=== PATIENT | female | born 1995 | race Caucasian/White ===

== ENCOUNTER 2024-10-08 12:25 | Emergency (ER) | payer BC, SELFPAY ==
[2024-10-08 12:27] VITALS: BP 124/92; PULSE 90; RESP 15; TEMP 36.1; O2SAT 100; BMI 40.2
[2024-10-08 13:02] LABS: Bacteria 0 SEEN /hpf (None Seen); Mucous, Urine 0 SEEN /hpf (<or=2+)
[2024-10-08 13:07] LABS: Absolute Lymphocyte Count 3.02 X10^3/uL (0.83-4.51); Absolute Neutrophil Count 10.5 X10^3/uL (2.0-7.7); Basophil# 0.07 X10^3/uL; Basophil% 0.5 % (0-1); Eosinophil# 0.17 X10^3/uL; Eosinophils% 1.2 % (0-5); Hematocrit 45.5 % (37-47); Hemoglobin 15.2 g/dL (12.0-15.0); Lymphocyte # 3.02 X10^3/ul (0.83-4.51); Lymphocyte % 20.9 % (19-41); Mean Corp Hgb Conc 33.4 g/dL (32-36); Mean Corpuscular Hgb 28.2 pg (27.0-32.0); Mean Corpuscular Volume 84.4 fL (81-99); Monocyte# 0.64 X10^3/uL; Monocyte% 4.4 % (0-10); NRBC Flagged by Analyzer 0 % (0-5); Neutrophil # 10.47 X10^3/uL (2.7-7.7); Neutrophil % 72.5 % (47-70); Platelet Count 330 K/mm3 (150-450); RBC Distribution Width CV 15.6 % (11.6-14.6); RBC Distribution Width SD 47.4 fl (35.1-43.9); Red Blood Count 5.39 M/mm3 (4.2-5.4); White Blood Count 14.4 K/mm3 (4.4-11.0)
[2024-10-08 13:19] LABS: Color, Urine Yellow (Yellow); Glucose, Dipstick Normal (Normal); Ketone-Dipstick Negative (Negative); Leukocyte Esterase-Dipstick 25 /ul (Negative); Nitrite-Dipstick Negative (Negative); Occult Blood-Urine Negative /ul (Negative); Protein-Dipstick 30 mg/dl (Negative); Urine Bilirubin Dipstick Negative (Negative); Urine Clarity Sl. Cloudy (Clear); Urine Urobilinogen Normal (Normal)
--- NOTE | 2024-10-08 13:23 | EX.ED.DYSGE1 ---
HPI History of Present Illness Chief Complaint: Abd Pain Narrative Narrative: Chief complaint and HPI: Nausea and vomiting. 29-year-old female presents for evaluation of nausea and vomiting. Patient states this morning she woke with diffuse abdominal pain that led to 2 episodes of nausea and vomiting. Nonbilious, nonbloody. She states her abdominal pain has now resolved. She denies any diarrhea. Denies any fever, chills, shortness of breath, chest pain, dysuria. Patient states that she is 11 days late on her menstrual cycle. Her last intercourse was 1 month ago. Review of systems: See HPI Medications: As listed on the chart Allergies: As listed on the chart PFSH: Per chart Vital signs: As listed on the chart. Reviewed. Physical exam: Gen: A&O x3, NAD Head: Normocephalic, atraumatic Eyes: No sclera icterus, conjunctiva clear ENT: Moist mucous membranes Neck: Trachea midline, No JVD CV: RRR, no murmurs, no peripheral edema Resp: Lungs CTA BL, no w/r/c GI: Abd soft, non-distended, non-tender, no r/r/g : No CVA tenderness Musc: Full ROM, no deformity Skin: Warm, dry Neuro: Alert, oriented, grossly intact, sensation intact Psych: Cooperative, appropriate mood and [facility] Medications ?Medication ?Instructions ?Recorded ?Last Taken ?Type ondansetron 4 mg disintegrating 4 mg PO Q8H PRN PRN Nausea #10 tabs 10/08/24 Unknown Rx tablet Allergy/AdvReac Type Severity Reaction Status Date / Time No Known Allergies Allergy Verified 10/08/24 12:30 Surgical History (Updated 10/08/24 @ 12:53 by Sonya Lawson) Hx of thyroidectomy Social History Smoking Status: Never smoker EXAM Physical Exam Const Vital Signs: 10/08/24 12:27 10/08/24 14:26 10/08/24 15:02 Temperature 96.9 F L 98.7 F Temperature Source Temporal Pulse Rate 90 82 84 Respiratory Rate 15 16 16 Blood Pressure 124/92 H 132/74 H 128/74 H Blood Pressure Mean 102 93 92 Pulse Ox 100 97 97 Oxygen Delivery Method Room Air MDM MDM MDM Narrative Medical decision making narrative: 29-year-old female presents for evaluation of nausea and vomiting. Patient had 2 episodes that were nonbloody and nonbilious. Had abdominal pain that is since resolved. Denying nausea currently. Patient is late on her menstrual cycle. Differential diagnosis includes but is not limited to viral gastroenteritis, , UTI, electrolyte abnormality, pancreatitis, cholecystitis, gastritis. Patient offered antinausea medication but declined stating that she is no longer nauseous. She is actively drinking Gatorade in the room. Abdominal laboratory workup ordered. I do not think any imaging is needed at this time given that abdominal physical exam is benign and patient is no longer endorsing nausea or abdominal pain. CBC with mild leukocytosis of 14.4. Patient has mild hemoconcentration of 15.2. CMP consistent with metabolic anion gap. Patient does have hyperglycemia of 122 however she has no ketones or glucose in her urine. Not consistent with diabetes however consistent with dehydration given patient's nausea and vomiting. She has no CH[place]. Patient has mild transaminitis with an AST of 49 and ALT of 51. Patient is not endorsing any right upper quadrant abdominal pain and she is not tender on physical exam. You can see this elevation with viral illnesses as well as dehydration. Lipase unremarkable. Serum negative. UA negative for UTI. On reevaluation, patient denies any abdominal pain. She has been tolerating Gatorade the entire time in the emergency department without nausea, vomiting. Suspect viral illness. Patient was updated on all of her results. She was told to follow-up with her PCP. Return precautions explained. Will be given order to have repeat CMP in 1 week to assess for transaminitis. This will need to be followed up by her PCP. She confirmed understanding. She was told to continue fluid hydration throughout the day. Zofran ordered as needed for nausea at home. Impression: 1. Nausea and vomiting 2. Delayed menstrual cycle 3. Abdominal pain, resolved Lab Data Labs: Laboratory Results - last 24 hr 10/08/24 12:48 WBC 14.4 H RBC 5.39 Hgb 15.2 H Hct 45.5 MCV 84.4 MCH 28.2 MCHC 33.4 RDW Std Deviation 47.4 H RDW Coeff of [place] 15.6 H Plt Count 330 MPV 10.0 Immature Gran % (Auto) 0.500 Neut % (Auto) 72.5 H Lymph % (Auto) 20.9 [place] % (Auto) 4.4 Eos % (Auto) 1.2 Baso % (Auto) 0.5 Absolute Neuts (auto) 10.5 H Absolute Lymphs (auto) 3.02 Nucleated RBC % 0 Sodium 135 Potassium 4.0 Chloride 95 L Carbon Dioxide 20.9 L Anion Gap 19 H BUN 18 Creatinine 1.06 Estim Creat Clear Calc 97.43 Est GFR (MDRD) Non-Af 73 BUN/Creatinine Ratio 16.8 Glucose 122 H Calcium 10.4 Total Bilirubin 0.51 AST 49 H ALT 51 H Alkaline Phosphatase 86 Total Protein 8.9 H Albumin 5.5 H Globulin 3.4 Albumin/Globulin Ratio 1.7 Lipase 32 Serum , Qual NEGATIVE Urine Color Yellow Urine Clarity Sl. Cloudy Urine pH 8.0 Ur Specific [place] 1.010 Urine Protein 30 H Urine Glucose (UA) Normal Urine Ketones Negative Urine Occult Blood Negative Urine Nitrite Negative Urine Bilirubin Negative Urine Urobilinogen Normal Ur Leukocyte Esterase 25 H Urine RBC 0 SEEN Urine WBC 0-5 SEEN Ur Squamous Epith Cells 0-5 SEEN Urine Bacteria 0 SEEN Urine Mucus 0 SEEN Discharge Plan Triage Chief Complaint: Abd Pain ED Provider: Wallace Tomlin Dx/Rx/DC Orders Clinical Impression: Nausea & vomiting Instructions: ED Diet Vomiting Diarrhea, ED Vomiting (Adult) Prescriptions: New ondansetron 4 mg tablet,disintegrating 4 mg PO Q8H PRN PRN (Reason: Nausea) Qty: 10 0RF Other Ambulatory Orders: Comprehensive Metabolic Profil (Routine) Timeframe: 1 Week Facility: [facility] - Location: Laboratory Ordered By: Dr. Wallace Tomlin Primary Care Provider: Tian Latham Referrals: Tian Latham MD [Primary Care Provider] - 3-5 Days Activity Restrictions/Additional Instructions: Continue to drink plenty of fluids. Return back to the ED if symptoms change or worsen. You had elevated liver enzymes on your labs. This will need to be worked up outpatient. This may be elevated due to viral illness as well as dehydration. You were provided with a lab order to get a repeat CMP. Call your doctors office to make an appointment to be seen to have this evaluated. Print Language: [place] Disposition Disposition: Home, Self Care Discharge Date/Time: 10/08/24 15:09
[2024-10-08 13:25] LABS: Squamous Epithelial Cells - UA 0-5 SEEN /hpf (5-10)
[2024-10-08 13:26] LABS: Red Blood Cells-Urine 0 SEEN /hpf (0-5); White Blood Cells 0-5 SEEN /hpf (0-5)
[2024-10-08 13:46] LABS: Internal QC Validated? YES +Cl - CLEAR BKGD; Pregnancy, Serum, hCG Quali. NEGATIVE Negative
[2024-10-08 14:26] VITALS: BP 132/74; PULSE 82; RESP 16; O2SAT 97
[2024-10-08 14:44] LABS: ALB/GLOB Ratio 1.7 RATIO (0.9-2.4); AST(SGOT) 49 U/L (<=31); Alanine Aminotransfer ALT/SGPT 51 U/L (<=34); Albumin, Serum 5.5 g/dL (3.5-5.0); Alkaline Phosphatase 86 U/L (35-104); Anion Gap 19 (5-15); BUN 18 mg/dL (4-19); BUN/Creat Ratio 16.8 RATIO (10-20); Calcium,Total 10.4 mg/dL (7.6-11.0); Carbon Dioxide 20.9 mmol/L (21.0-32.0); Chloride 95 mmol/L (98-108); Creatinine, Serum 1.06 mg/dL (0.70-1.20); EST Glomerular Filtration Rate 73 (>60); Estimated Creatinine Clearance 97.43 ml/min (50-250); Globulin 3.4 g/dL (2.2-4.2); Glucose 122 mg/dL (70-99); Lipase 32 U/L (13-75); Protein, Total 8.9 g/dL (5.9-8.4); Sodium Level 135 mmol/L (133-145); Total Bilirubin 0.51 mg/dL (0.00-1.30)
[2024-10-08 15:02] VITALS: BP 128/74; PULSE 84; RESP 16; TEMP 37.1; O2SAT 97
== END 2024-10-08 15:09 | disposition home or self-care (01) ==
PROVIDERS: Emergency Provider Surgery; Referring Provider Surgery; Visit Provider Surgery
DX: R11.2 Nausea with vomiting, unspecified (principal); R73.9 Hyperglycemia, unspecified; N91.0 Primary amenorrhea
CPT/HCPCS: 80053; 81001; 83690; 84703; 85025; 99284; A4216

== ENCOUNTER → 2024-10-30 | Outpatient (CLI) | payer BC, SELFPAY ==
--- NOTE | 2024-10-30 09:00 | US_ITS ---
PROCEDURE: Left upper quadrant ultrasound. 10/30/2024 REASON FOR EXAM: Nausea and vomiting. Left upper quadrant pain TECHNIQUE: Ultrasound evaluation of the upper abdomen was performed. COMPARISON: None available FINDINGS: Included portions of the pancreas show no specific abnormality, although detail is limited. No abdominal ascites. The left kidney is 10.4 cm in length, grossly unremarkable. Spleen size at the upper limits of normal at 13.9 cm. No discrete splenic lesion or perisplenic fluid collection. US/Abdomen Limited IMPRESSION: Spleen size at the upper limits of normal at 13.9 cm. Otherwise, unremarkable ultrasound of the left upper quadrant. If there is persistent pain or clinical concern, CT evaluation may be considere d. Reading [facility]
== END | disposition home or self-care (01) ==
PROVIDERS: Referring Provider Nurse Practitioner Acute Care; Visit Provider Nurse Practitioner Acute Care
DX: R74.01 Elevation of levels of liver transaminase levels (principal); R11.2 Nausea with vomiting, unspecified; R19.7 Diarrhea, unspecified; D72.829 Elevated white blood cell count, unspecified
CPT/HCPCS: 76705

== ENCOUNTER → 2024-11-12 | Outpatient (CLI) | payer BC, SELFPAY ==
--- NOTE | 2024-11-12 08:24 | US_ITS ---
PROCEDURE: ABDOMEN LIMITED 11/12/2024 REASON FOR EXAM: Right upper quadrant pain. COMPARISON: No prior FINDINGS: Liver: Diffusely echogenic suggesting fatty infiltration. Hepatomegaly. The liver measures 22.2 cm. Gallbladder: No stones, sludge, wall thickening or tenderness. Common bile duct: Normal measuring 3 mm. Pancreas: Visualized portions are sonographically unremarkable. Other: Visualized portions of the right kidney are unremarkable. No right upper quadrant ascites. US/Abdomen Limited IMPRESSION: Hepatomegaly and diffuse fatty infiltration of the liver. Reading Location: [place] [id number]
== END | disposition home or self-care (01) ==
PROVIDERS: Referring Provider Nurse Practitioner Acute Care; Visit Provider Nurse Practitioner Acute Care
DX: R10.9 Unspecified abdominal pain (principal)
CPT/HCPCS: 76705